=== PATIENT | male | born 1965 | race Caucasian/White ===

== ENCOUNTER 2018-05-05 10:14 | Emergency (ER) | payer OTHER ==
[~2018-05-05] VITALS: Ht 165.1 cm; Wt 81.6 kg
[2018-05-05] MEDS ORDERED: ZOCOR5 MG (10:19)
[2018-05-05] MEDS ORDERED: ZITHROMAX TRI-500 MG PO (14:18)
[2018-05-05] MEDS ORDERED: TUSSI PRES-B L120 M1 PO (14:18)
== END 2018-05-05 14:33 | disposition home or self-care (01) ==
LOC: ER 10:14
DX: J11.1 Influenza due to unidentified influenza virus with other respiratory manifestations (principal)